=== PATIENT | female | born 1995 | race Caucasian/White ===

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

== ENCOUNTER 2020-08-06 19:18 | Emergency (ER) | payer OTHER ==
[2020-08-06 19:23] VITALS: BP 133/73; PULSE 75; TEMP 99; BMI 38.9
[2020-08-06] MEDS ORDERED: ONDANSETRON 4 MG/2 ML VIAL IVPUSH ONE (19:49)
[2020-08-06] MEDS ORDERED: SODIUM CHLORIDE 1,000 ML IV STA (19:49)
[2020-08-06] MEDS ORDERED: ONDANSETRON 4 MG/2 ML VIAL ONE (20:13)
[2020-08-06 20:14] LABS: HCG,QUALITATIVE URINE Positive
[2020-08-06 20:27] LABS: EOS % 0.4 % (0-4.5); HEMATOCRIT 41.3 % (32.4-45.2); HEMOGLOBIN 13.2 GM/dl (10.7-15.3); LYMPH % 18.1 % (8-40); MCH 27.8 pg (25.7-33.7); MEAN CELL VOLUME 86.9 fl (80-96); MEAN PLT VOLUME 9.7 fl (7.5-11.1); MONO % 4.1 % (3.8-10.2); NEUT % 76.4 % (42.8-82.8); PLATELET COUNT 317 K/MM3 (134-434); RBC 4.76 M/mm3 (3.60-5.2); RDW 13.2 % (11.6-15.6); WHITE BLOOD COUNT 9.6 K/mm3 (4.0-10.8)
[2020-08-06 20:36] LABS: AMORP URATES 1+ /hpf (NONE SEEN); EPITHELIAL CELLS MODERATE /hpf
[2020-08-06 21:23] LABS: ALBUMIN 3.8 g/dl (3.4-5.0); BILIRUBIN,TOTAL 0.7 mg/dl (0.2-1); CALCIUM 8.6 mg/dl (8.5-10); CREATININE 0.5 mg/dl (0.55-1.3); POTASSIUM 3.9 mmol/L (3.5-5.1); TOT PROT 6.6 g/dl (6.4-8.2)
== END 2020-08-06 21:56 | disposition home or self-care (01) ==
LOC: FER 19:18
PROC: 3E033GC Introduction of Other Therapeutic Substance into Peripheral Vein, Percutaneous Approach (ICD-10-PCS; principal; 2020-08-06)
PROC: 3E0337Z Introduction of Electrolytic and Water Balance Substance into Peripheral Vein, Percutaneous Approach (ICD-10-PCS; 2020-08-06)
DX: R11.2 Nausea with vomiting, unspecified (principal)
CPT/HCPCS: 36415; 80053; 81003; 81015; 83690; 84703; 85025; 87086; 87186; 99284-25

== ENCOUNTER 2020-08-23 05:14 | Day surgery (SDC) | payer OTHER ==
[2020-08-22 16:09] VITALS: BMI 38.0
[2020-08-23] MEDS ORDERED: ONDANSETRON 4 MG/2 ML VIAL IVPUSH PRN (10:33)
[2020-08-23] MEDS ORDERED: oxyCODONE HCL 5 MG TABLET PO PRN (10:33)
[2020-08-23] MEDS ORDERED: LACTATED RINGERS SOLUTION 1,000 ML IV SCH (10:45)
[2020-08-23] MEDS ORDERED: MIDAZOLAM HCL 2 MG/2 ML SINGLE DOSE VIAL ONE (11:09)
[2020-08-23] MEDS ORDERED: PROPOFOL 20 ML ONE (11:09)
[2020-08-23] MEDS ORDERED: KETOROLAC TROMETHAMINE 30 MG/1 ML VIAL ONE (11:19)
[2020-08-23] MEDS ORDERED: OXYTOCIN 10 UNITS/ML VIAL ONE (11:26)
[2020-08-23] MEDS ORDERED: DEXAMETHASONE SOD PHOSPHATE 4 MG/1 ML VIAL ONE (11:27)
[2020-08-23] MEDS ORDERED: IBUPROFEN 400 MG TABLET (FP) PO PRN (11:39)
[2020-08-23] MEDS ORDERED: ACETAMINOPHEN 325 MG TABLET (FP) PO PRN (11:39)
[2020-08-23 13:39] VITALS: PULSE 78
[2020-08-23 15:18] VITALS: BP 130/72; TEMP 96.8
== END 2020-08-23 14:15 | disposition home or self-care (01) ==
LOC: JASU-SURG 05:14
PROVIDERS: ATTEND Specialist
PROC: 10A07ZZ Abortion of Products of Conception, Via Natural or Artificial Opening (ICD-10-PCS; principal; 2020-08-23 11:00)
DX: Z33.2 Encounter for elective termination of pregnancy (principal); Z3A.08 8 weeks gestation of pregnancy
CPT/HCPCS: 86850; 86900; 86901; 88305-TC; 94760

== ENCOUNTER 2022-01-13 03:34 | Emergency (ER) | payer OTHER ==
[2022-01-13 03:48] VITALS: TEMP 99; BMI 38.9
[2022-01-13] MEDS ORDERED: SODIUM CHLORIDE 1,000 ML IV ONE (03:55)
[2022-01-13] MEDS ORDERED: ONDANSETRON 4 MG/2 ML VIAL IVPB ONE (03:56)
[2022-01-13] MEDS ORDERED: ONDANSETRON 4 MG/2 ML VIAL ONE (04:06)
[2022-01-13 05:52] LABS: BASO % 0.2 % (0-2.0); EOS % 0.2 % (0-4.5); HEMATOCRIT 41.9 % (32.4-45.2); HEMOGLOBIN 13.8 GM/dL (10.7-15.3); LYMPH % 11.9 % (8-40); MCH 27.3 pg (25.7-33.7); MCHC 32.9 g/dl (32.0-36.0); MEAN CELL VOLUME 82.9 fl (80-96); MEAN PLT VOLUME 9.8 fl (7.5-11.1); MONO % 3.4 % (3.8-10.2); NEUT % 84.3 % (42.8-82.8); PLATELET COUNT 309 10^3/uL (134-434); RBC 5.06 M/mm3 (3.60-5.2); RDW 14.1 % (11.6-15.6); WHITE BLOOD COUNT 10.6 K/mm3 (4.0-10.0)
[2022-01-13 06:09] LABS: CALCIUM 9.4 mg/dL (8.5-10.1)
[2022-01-13 06:10] LABS: ALBUMIN 4.2 g/dl (3.4-5.0)
[2022-01-13 06:13] LABS: CREATININE 0.6 mg/dL (0.55-1.3)
[2022-01-13 06:14] LABS: BILIRUBIN,TOTAL 0.6 mg/dL (0.2-1); TOT PROT 7.9 g/dl (6.4-8.2)
[2022-01-13 06:48] LABS: EPI CELLS >36 /uL (0-25.1); HYALINE CASTS 4 /uL (0-3.1); URINE APPEARANCE CLEAR; URINE BACTERIA 677 /uL (0-1359); URINE BILIRUBIN NEGATIVE (NEGATIVE); URINE COLOR YELLOW; URINE GLUCOSE (UA) NEGATIVE (NEGATIVE); URINE KETONE 4+ (NEGATIVE); URINE LEUK ESTERASE NEGATIVE (NEGATIVE); URINE NITRITE NEGATIVE (NEGATIVE); URINE PROTEIN 1+ (NEGATIVE); URINE RBC 9 /uL (0-23.9); URINE WBC 23 /uL (0-25.8)
[2022-01-13] MEDS ORDERED: DEXTROSE 5%-NORMAL SALINE 1,000 ML IV ONE (07:20)
[2022-01-13] MEDS ORDERED: DEXTROSE 5%-WATER 1000 ML INFUS.BAG IV ONE (07:45)
[2022-01-13 09:29] VITALS: BP 110/57; PULSE 82
== END 2022-01-13 09:28 | disposition home or self-care (01) ==
LOC: FER 03:34
PROC: 3E033GC Introduction of Other Therapeutic Substance into Peripheral Vein, Percutaneous Approach (ICD-10-PCS; principal; 2022-01-13)
DX: O21.0 Mild hyperemesis gravidarum (principal); Z3A.01 Less than 8 weeks gestation of pregnancy
CPT/HCPCS: 36415; 80053; 81003; 84702; 85025; 99284-25

== ENCOUNTER 2023-09-09 21:05 | Emergency (ER) | payer OTHER ==
[2023-09-09 21:33] VITALS: BP 125/84; PULSE 105; RESP 18; TEMP 98.9; BMI 32.5
[2023-09-09] MEDS ORDERED: ALBUTEROL SO4 2.5/IPRATROPIUM 0.5 INH SOL 3 ML VIAL.NEB. NEB ONE (23:17)
== END 2023-09-09 23:19 | disposition home or self-care (01) ==
LOC: FER 21:05
DX: S16.1XXA Strain of muscle, fascia and tendon at neck level, initial encounter (principal); S29.012A Strain of muscle and tendon of back wall of thorax, initial encounter; V49.40XA Driver injured in collision with unspecified motor vehicles in traffic accident, initial encounter; Y92.9 Unspecified place or not applicable
CPT/HCPCS: 72050-TC-FY; 81025; 99283-25

== ENCOUNTER 2023-09-13 21:51 | Emergency (ER) | payer OTHER ==
[2023-09-13 21:57] VITALS: BP 116/70; PULSE 84; RESP 17; TEMP 98.5; BMI 40.0
[2023-09-13] MEDS ORDERED: KETOROLAC TROMETHAMINE 60 MG/2 ML VIAL IM ONE (22:21)
[2023-09-13] MEDS ORDERED: KETOROLAC TROMETHAMINE 30 MG/1 ML VIAL ONE (22:24)
== END 2023-09-13 23:51 | disposition home or self-care (01) ==
LOC: FER 21:51
DX: M54.2 Cervicalgia (principal); M54.6 Pain in thoracic spine; V49.40XA Driver injured in collision with unspecified motor vehicles in traffic accident, initial encounter; Y92.410 Unspecified street and highway as the place of occurrence of the external cause
CPT/HCPCS: 72070-TC-FY; 99284-25